=== PATIENT | male | born 1965 | race Two or more races ===

== ENCOUNTER 2021-05-13 19:45 | Inpatient (IN) | payer BC ==
[~2021-05-13] VITALS: Ht 172.7 cm; Wt 90.7 kg
--- NOTE | 2021-05-13 19:53 | NUR ---
SE RECIBE PACIENTE EN AMBULANCIA REFIERE PALPITACIONES Y DOLOR DE PECHO SE JAMAL S/V Y SE UBIAC EN AREA DE CRITICAR CARE
[2021-05-13] MEDS ORDERED: CLONAZEPAM0.5 MG (20:45)
[2021-05-13] MEDS ORDERED: LOPRESSOR HCT1 EACH (20:45)
[2021-05-13] MEDS ORDERED: ADDERALL 10 MG10 MG (20:45)
--- NOTE | 2021-05-13 20:46 | NUR ---
SE RECIBE PACIENTE MASUCLINO DE 56 ANOS DE EDAD RECIBIDO POR AMBULANCIA POR DOLOR DE PECHO Y TAQUICARDIA. PACIENTE PRESENTA TAQUICARDIA CON PULSO EN 210 BPM. SE CONECTA A MONITOR CARDIACO, SATUROMETRIA JEIMY, SE CANALIZA PACIENTE EN MANO IZQUIERDA, SE EXTRAEN MUESTRAS DE CARLITOS. SE ADMINISTRAN MEDICAMENTOS EVIN ORDEN MEDICA. SE ADMINISTRA ADENOSINA 4MG. PACIENTE NO PRESENTA MEJORIA. DRA. OWENS ORDENA VERSED 2MG Y MORFINA 4MG Y PREPARAR PACIENTE PARA CARDIOVERSION ELECTRICA. SE ADMINISTRAN MEDICAMENTOS EVIN ORDEN MEDICA. PACIENTE NO PRESENTA EFECTOS SECUNDARIOS, SE MANTIENE ALERTA Y ORIENTADO. DRA. OWENS CONSULTA CON DR. VASQUEZ EL CUAL ORDENA LOPRESSOR 5MG IV. SE LE ADMINISTRA MEDICAMENTO EVIN ORDEN MEDICA.
--- NOTE | 2021-05-13 21:21 | NUR ---
PACIENTE PRESENTA PULSO REGULAR
--- NOTE | 2021-05-13 23:00 | NUR ---
PACIENTE ALERTA Y ORIENTADO X3. EN POSICION SEMI-SENTADO EN CAMA #1 DE UNIDAD DE CRITICO CON BARANDAS ELEVADAS. SE OBSERVA BUEN PATRON RESPIRATORIO, RECIBIENDO OXIGENO POR CANULA NASAL A 3 LITROS Y SATURANDO OXIGENO MANUAL A 96%. CONECTADO A MONITOR CARDIACO PRESENTANDO UN RITMO IRREGULAR Y PRESENTANDO PREMATUROS. IV FLUID PATENTE Y LIS DE EDEMA Y ERITEMA. RECIBIENDO 0.9 NSS DE 1,000ML BAJANDO A KVO POR BRAZO MASOUD. RECIBIENDO DRIP DE NEXTERONE 360MG/200ML BAJANDO A 33 ML/HR POR CANALIZACION DE MANO IZQUIERDA. SE MANTIENE BAJO OBSERVACION POR CAMBIOS SIGNIFICATIVOS. PENDIENTE ECHO ORDENADO POR EN LA MANANA Y MUESTRA DE CARLITOS DE SEGUNDAS TROPONINAS A LAS 12:00AM. PACIENTE CONSULTADO CON DR. VASQUEZ.
--- NOTE | 2021-05-13 23:01 | NUR ---
PACIENTE CONSULTADO CON DRA. EVANS.
--- NOTE | 2021-05-14 09:38 | NUR ---
SE RECIBE PTE. ALERTA Y ORIENTADO EN JAYJAY RAYMUNDO ESFERAS. SE OBSERVA PTE EN CAMA BAJA Y CON BARANDAS ELEVADAS. PTE CONECTADO A MONITOR CARDIACO Y OXIMETRIA CONTINUA, CANULA NASAL A 2 LITROS. CANALIZADO EN PERIFERAL LT CON ANGIO #18 EN MANO Y ANTEBRAZO. AREAS DE VENOPUNCION LIS DE EDEMA Y ERITEMA. CON DRIP DE AMIODARONE BAJANDO A 16 ML/HR Y 0.9 NSS BAJANDO KVO. SE ADMINISTRAN MEDICAMENTOS EVIN ORDEN MEDICA. PTE ES EVALUADO POR LA DRA. EVANS. SE MANTIENE BAJO OBSERVACION POR CAMBIOS SEGNIFICATIVOS
[2021-05-15] MEDS ORDERED: FLUOXETINE HCL10 MG (11:07)
[2021-05-15] MEDS ORDERED: FINASTERIDE1 MG (11:07)
[2021-05-15] MEDS ORDERED: LOPRESSOR25 MG (11:07)
[2021-05-15] MEDS ORDERED: ZOLPIDEM TARTRA10 MG (11:07)
[2021-05-16] MEDS ORDERED: LIPITOR20 MG PO (16:14)
[2021-05-16] MEDS ORDERED: ST. JOSEPH ASPI81 M2 PO (16:14)
[2021-05-16] MEDS ORDERED: TOPROL XL50 M1 PO (16:14)
== END 2021-05-16 17:09 | disposition home or self-care (01) | DRG 310 ==
LOC: ER 19:45 → MEDI 05-14 09:46
PROVIDERS: ADMIT Internal Medicine; ATTEND Internal Medicine
PROC: 4A12X4Z Monitoring of Cardiac Electrical Activity, External Approach (ICD-10-PCS; principal; 2021-05-14)
DX: I47.1 Supraventricular tachycardia (principal); I10 Essential (primary) hypertension; F41.9 Anxiety disorder, unspecified; Z53.29 Procedure and treatment not carried out because of patient's decision for other reasons